=== PATIENT | male | born 1995 | race Caucasian/White ===

== ENCOUNTER 2020-06-06 22:30 | Emergency (ER) | payer OTHER ==
[~2020-06-06 22:30] MED LIST: DOXYCYCLINE HY100 MG PO
[2020-06-07 00:34] LABS: HEMOGLOBIN 15.3 gm/dl (14.0-17.5); RED BLOOD COUNT 5.23 M/UL (4.20-5.50); WHITE BLOOD COUNT 7.9 K/UL (4.5-11.0)
[2020-06-07 00:53] LABS: BUN/CREATININE RATIO 18 (0-10)
== END 2020-06-07 03:10 | disposition home or self-care (01) ==
LOC: ER1 22:30
PROVIDERS: Emergency Medicine
DX: R07.9 Chest pain, unspecified (principal); Z20.822 Contact with and (suspected) exposure to COVID-19
CPT/HCPCS: 36415; 70450; 71045; 80053; 81001; 83690; 84484; 85025; 85379; 93005; 99285; U0002